=== PATIENT | female | born 1950 | race Caucasian/White ===

== ENCOUNTER 2019-12-18 18:01 | Emergency (ER) | payer MEDICARE ==
[~2019-12-18] VITALS: Ht 162.6 cm; Wt 81.2 kg
[~2019-12-18 18:01] MED LIST: HYDR-4833
[2019-12-18 19:06] VITALS: BP 163/74
[2019-12-18] MEDS ORDERED: KETOROLAC TROMETH 60MG/2ML VIAL IM ONE (19:30)
== END 2019-12-18 20:06 | disposition home or self-care (01) ==
LOC: ER 18:01
DX: M54.2 Cervicalgia (principal); F17.210 Nicotine dependence, cigarettes, uncomplicated
CPT/HCPCS: 96372; 99283; J1885